=== PATIENT | female | born 1985 | race Two or more races ===

== ENCOUNTER 2021-02-06 19:13 | Emergency (ER) | payer BC ==
[~2021-02-06] VITALS: Ht 162.6 cm; Wt 88.5 kg
[2021-02-06 19:25] VITALS: BP_SYST 119
[2021-02-06] MEDS ORDERED: LEVO112T2 PO (19:42)
[2021-02-06 20:01] LABS: BILIRUBIN,URINE NEGATIVE (NEGATIVE); BLOOD, URINE NEGATIVE (NEGATIVE); CLARITY/URINE CLEAR (CLEAR); COLOR,URINE YELLOW (YELLOW); GLUCOSE,URINE NEGATIVE (NEGATIVE); KETONES,URINE NEGATIVE (NEGATIVE); LEUKOCYTE ESTERASE ,URINE NEGATIVE (NEGATIVE); NITRITE, URINE NEGATIVE (NEGATIVE); PH,URINE 6.5 (5.0-8.0); PROTEIN URINE NEGATIVE (NEGATIVE); UROBILINOGEN,URINE 0.2 (0.2-1.0)
[2021-02-06 20:07] LABS: HEMOGLOBIN 13.3 g/dL (12.0-16.0); WHITE BLOOD COUNT (AUTO) 8.4 K/uL (4.8-10.8)
[2021-02-06 20:16] LABS: BASOPHILS % (AUTO) 0.3 % (0.0-2.0); EOSINOPHILS # (AUTO) 0.4 K/uL (0.0-0.4); HEMATOCRIT 40.1 % (36-48); LYMPHOCYTES # (AUTO) 3.3 K/uL (1.0-5.5); LYMPHOCYTES % (AUTO) 39.2 % (20.5-51.5); MEAN CORPUSCULAR HEMOGLOBIN 28 pg (27-31); MEAN CORPUSCULAR HGB CONC 33 % (32-36); MEAN CORPUSCULAR VOLUME 85 fL (79.0-98.0); MONOCYTES # (AUTO) 0.5 K/uL (0.0-1.0); MONOCYTES % (AUTO) 6.1 % (1.7-9.3); NEUTROPHILS # (AUTO) 4.1 K/uL (1.8-7.7); NEUTROPHILS % (AUTO) 49.4 % (40.0-70.0); PLATELET COUNT (AUTO) 249 K/uL (130-430); RED BLOOD CELL COUNT(AUTO) 4.73 MIL/uL (4.2-6.2); RED CELL DISTRIBUTION WIDTH 13.6 % (9.0-15.0)
[2021-02-06 20:17] LABS: CALCIUM 8.9 mg/dL (8.4-11.0); CREATININE 0.81 mg/dL (0.55-1.30); POTASSIUM 3.6 mmol/L (3.5-5.1)
[2021-02-06 20:22] LABS: ALBUMIN 3.7 g/dL (3.4-4.8); TOTAL BILIRUBIN 0.3 mg/dL (0.0-1.0)
[2021-02-06] MEDS ORDERED: HYDR-3919 PO (20:39)
[2021-02-06 20:48] VITALS: BP_SYST 120
== END 2021-02-06 20:48 | disposition home or self-care (01) ==
LOC: SED 19:13
DX: K80.20 Calculus of gallbladder without cholecystitis without obstruction (principal); E07.9 Disorder of thyroid, unspecified; Z88.2 Allergy status to sulfonamides
CPT/HCPCS: 36415; 76700-TC; 80053; 81003; 81025; 83690; 84484; 85025; 93005; 99285

== ENCOUNTER 2024-01-18 19:15 | Emergency (ER) | payer BC ==
[~2024-01-18] VITALS: Ht 162.6 cm; Wt 90.7 kg
[~2024-01-18 19:15] MED LIST: HYDR-3919 PO; LEVO112T2 PO
[2024-01-18 19:35] VITALS: BP_SYST 118; PULSE 96; RESP 16; TEMP 97.9; O2SAT 97
== END 2024-01-18 19:30 | disposition left against medical advice (07) ==
LOC: SED 19:15
DX: M54.50 Low back pain, unspecified (principal); Z88.2 Allergy status to sulfonamides; Z79.899 Other long term (current) drug therapy
CPT/HCPCS: 99281